=== PATIENT | female | born 1955 | race Caucasian/White ===

== ENCOUNTER 2016-05-16 13:50 | Outpatient (CLI) | payer MEDICARE | END 2016-05-16 13:51 | disposition home or self-care (01) | DX: R53.83 Other fatigue (principal); M13.80 Other specified arthritis, unspecified site ==

== ENCOUNTER 2016-07-23 13:19 | Outpatient (CLI) | payer MEDICARE | END 2016-07-23 13:20 | DX: R53.83 Other fatigue (principal) ==

== ENCOUNTER 2016-07-27 08:00 | Outpatient (CLI) | payer MEDICARE ==
[2016-08-01 14:51] LABS: CREATININE, URINE 1.36 g/24 h (0.63-2.50)
== END 2016-07-27 23:59 | disposition home or self-care (01) ==
LOC: LAB.WCP 08:00
PROVIDERS: ATTEND Physician Assistant Medical
DX: R53.83 Other fatigue (principal)
CPT/HCPCS: 82530; 82570

== ENCOUNTER 2016-09-08 13:13 | Outpatient (CLI) | payer MEDICARE ==
--- NOTE | 2016-09-10 11:26 | DEXA Report ---
DEXA BONE MINERAL DENSITY: 09/08/2016 CLINICAL HISTORY: Postmenopausal. TECHNIQUE: Dual energy x-ray absorptiometry (DXA) was performed on a [employer] system. Regions measured are the AP spine, femoral neck, and, if needed, forearm. COMPARISON: None. In accordance with the International Society for Clinical Densitometry (ISCD) guidelines, data from previous exams may be reanalyzed using current recommendations and techniques. This is done to allow a more accurate basis for comparison with the current study. FINDINGS: L1 through L4 demonstrate a T-score of -1.6. This is compatible with osteopenia according to the World Health Organization guidelines. Left femoral neck T-score is -0.5. This is within normal limits according to the World Health Organization guidelines. Total hip T-score is 0.2. This is within normal limits according to the World Health Organization guidelines. The data for the lumbar spine is as follows: REGION BMD (g/cm/cm) T-SCORE Z-SCORE L1 0.939 -1.6 -0.6 L2 0.955 -2.0 -1.1 L3 0.961 -2.0 -1.0 L4 1.087 -0.9 0.0 TOTAL 0.993 -1.6 -0.6 NOTE: All evaluable vertebrae are used for classification. The data for the hip is as follows: REGION BMD (g/cm/cm) T-SCORE Z-SCORE Neck 0.964 -0.5 0.6 TOTAL 1.038 0.2 1.0 NOTE: The femoral neck or total proximal femur, whichever is lowest, is used for classification. IMPRESSION: THE WHO CLASSIFICATION BASED ON THE INTERNATIONAL REFERENCE STANDARD IS OSTEOPENIA ACCORDING TO THE WORLD HEALTH ORGANIZATION GUIDELINES. THE PATIENT HAS INCREASED FRACTURE RISK. RECOMMENDATION: Patients with diagnosis of osteoporosis or osteopenia should have regular bone mineral density assessment. For those eligible for Medicare, routine testing is allowed once every 2 years. Testing frequency can be increased for patients who have rapidly progressing disease or for those who are receiving medical therapy to restore bone mass. COMMENT: World Health Organization (WHO) definitions for osteoporosis and osteopenia: NORMAL BMD: T-score at -1.0 or higher, fracture risk is low. OSTEOPENIA BMD: T-score between -1.0 and -2.5, fracture risk is increased. OSTEOPOROSIS BMD: T-score at -2.5 or lower, fracture risk high. National Osteoporosis Foundation recommends: 1. Obtain adequate dietary calcium (at least 1200 mg per day) and vitamin D (400 -800 international units per day). 2. Participate, as appropriate, in regular weightbearing and muscle- strengthening exercise. 3. Avoid tobacco use and reduce alcohol and caffeine intake. 4. For more detailed information see the website at www.NOF.org. MTDD
== END 2016-09-08 13:14 | disposition home or self-care (01) ==
LOC: DI 13:13
PROVIDERS: ATTEND Physician Assistant Medical
DX: M85.88 Other specified disorders of bone density and structure, other site (principal)
CPT/HCPCS: 77080

== ENCOUNTER 2016-09-10 13:10 | Outpatient (CLI) | payer OTHER ==
--- NOTE | 2016-09-10 16:11 | XRAY Report ---
CHEST PA AND LATERAL: 09/10/2016 CLINICAL HISTORY: Chest pain. COMPARISON: None. FINDINGS: The bony thorax is normal. The heart and great vessels are normal. The mediastinum is not widened. The pulmonary parenchyma appears normal. IMPRESSION: NORMAL EXAMINATION. JOB #: [id number] EXT JOB #:[id number]
== END 2016-09-10 13:11 | disposition home or self-care (01) ==
LOC: DI 13:10
PROVIDERS: ATTEND Physician Assistant Medical
DX: R07.9 Chest pain, unspecified (principal)
CPT/HCPCS: 71020

== ENCOUNTER 2016-09-17 08:15 | Outpatient (CLI) | payer OTHER ==
[2016-09-17 13:32] LABS: CHOL/HDL RATIO 4.9 (<4.4); CHOLESTEROL 246 mg/dL; HDL CHOLESTEROL 50 mg/dL; LDL/HDL RATIO 3.2 (<4.4); TRIGLYCERIDES 186 mg/dL; VLDL CHOLESTEROL 37 mg/dL
== END 2016-09-17 08:16 | disposition home or self-care (01) ==
LOC: LAB.WCP 08:15
PROVIDERS: ATTEND Physician Assistant Medical
DX: R07.9 Chest pain, unspecified (principal)
CPT/HCPCS: 36415; 80061; 84484; 85379

== ENCOUNTER 2017-04-09 10:33 | Outpatient (CLI) | payer MEDICARE ==
[2017-04-09 19:42] LABS: ALBUMIN 4.4 g/dL (3.2-5.5); ALBUMIN/GLOBULIN RATIO 1.8 (1.0-2.2); ALKALINE PHOSPHATASE 84 IU/L (42-121); ALT ALANINE AMINOTRANSFERASE 28 IU/L (10-60); AST ASPARTATE AMINOTRANSFERASE 28 IU/L (10-42); BILIRUBIN,TOTAL 0.4 mg/dL (0.2-1.0); BUN - BLOOD UREA NITROGEN 19 mg/dL (6-20); CARBON DIOXIDE - CO2 28 mmol/L (21-32); CHLORIDE 105 mmol/L (101-111); CHOLESTEROL 155 mg/dL; CREATININE 0.8 mg/dL (0.4-1.0); GFR - MDRD 73 (>89); GLUCOSE 108 mg/dL (70-100); HDL CHOLESTEROL 51 mg/dL; LDL CHOLESTEROL,CALCULATED 67 mg/dL; LDL/HDL RATIO 1.3 (<4.4); SODIUM 139 mmol/L (135-145); TOTAL PROTEIN 6.9 g/dL (6.7-8.2); VLDL CHOLESTEROL 37 mg/dL
== END 2017-04-09 10:34 | disposition home or self-care (01) ==
LOC: LAB.WCP 10:33
PROVIDERS: ATTEND Physician Assistant Medical
DX: Z51.81 Encounter for therapeutic drug level monitoring (principal); E78.00 Pure hypercholesterolemia, unspecified
CPT/HCPCS: 36415; 80053; 80061

== ENCOUNTER 2018-02-18 14:13 | Emergency (ER) | payer MEDICARE ==
[2018-02-18 15:33] LABS: ALBUMIN 4.7 g/dL (3.2-5.5); ALBUMIN/GLOBULIN RATIO 1.8 (1.0-2.2); BASOPHILS % (AUTO) 0.7 %; BILIRUBIN,TOTAL 0.4 mg/dL (0.2-1.0); CALCIUM 9.1 mg/dL (8.5-10.3); CREATININE 0.9 mg/dL (0.4-1.0); EOSINOPHILS # (AUTO) 0.1 10^3/uL (0.0-0.7); EOSINOPHILS % (AUTO) 1.5 %; HGB - HEMOGLOBIN 13.6 g/dL (12.0-16.0); LYMPHOCYTES # (AUTO) 0.8 10^3/uL (1.5-3.5); LYMPHOCYTES % (AUTO) 11.3 %; MEAN CORPUSCULAR HEMOGLOBIN 31.3 pg (27.0-31.0); MEAN CORPUSCULAR HGB CONC 34.4 g/dL (32.0-36.0); MEAN PLATELET VOLUME 9.1 fL (7.9-10.8); MONOCYTES # (AUTO) 0.4 10^3/uL (0.0-1.0); NEUTROPHILS % (AUTO) 81.5 %; PLT - PLATELET COUNT 233 10^3/uL (130-450); RED BLOOD COUNT 4.36 10^6/uL (4.20-5.40); RED CELL DISTRIBUTION WIDTH 13.5 % (12.0-15.0); TOTAL PROTEIN 7.3 g/dL (6.7-8.2); WHITE BLOOD COUNT 7.4 x10^3/uL (4.8-10.8)
--- NOTE | 2018-02-18 15:36 | ED Physician Documentation ---
PD HPI ABD PAIN - Stated complaint Stated Complaint: NAUSEA,STOMACH DISCOMFORT - Chief complaint Chief Complaint: Abd Pain - History obtained from History obtained from: Patient - History of Present Illness Timing - onset: Today (At 1pm developed severe diffuse cramps and followed by a single diarrheal BM. Had normal BM yesterday. Feels undercooked gomes she ate yesterday was causative. Pain is completely gone at at this juncture. No nausea.) Review of Systems Ten Systems: 10 systems reviewed and negative Constitutional: denies: Fever, Chills Cardiac: denies: Chest pain / pressure, Palpitations Respiratory: denies: Dyspnea, Cough GI: reports: Abdominal Pain, Diarrhea. denies: Nausea, Vomiting, Constipation PD PAST MEDICAL HISTORY - Past Medical History GI: GERD Psych: Depression, Anxiety, Panic attacks Musculoskeletal: Osteoarthritis, Fibromyalgia, Fatigue, Chronic back pain - Past Surgical History Past Surgical History: No Derm: Skin cancer surgery - Present Medications Home Medications: Ambulatory Orders Medication Instructions Recorded Confirmed Gabapentin [Neurontin] 300 mg PO HS 07/17/15 07/17/15 Acyclovir 400 mg PO 02/18/18 02/18/18 Cholecalciferol (Vitamin D3) 1,000 unit PO 02/18/18 [Vitamin D3] Cyanocobalamin (Vitamin B-12) 02/18/18 02/18/18 [Vitamin B-12] Duloxetine HCl 60 mg PO 02/18/18 Estradiol [Estrace] 1 mg PO DAILY 02/18/18 02/18/18 Pantoprazole [Protonix] 40 mg PO 02/18/18 02/18/18 Progesterone,Micronized 100 mg PO 02/18/18 [Progesterone] - Allergies Allergies/Adverse Reactions: Allergies Allergy/AdvReac Type Severity Reaction Status Date / Time No Known Drug Allergies Allergy Verified 02/18/18 14:25 - Social History Does the pt smoke?: No Smoking Status: Never smoker Does the pt drink ETOH?: No Does the pt have substance abuse?: No - Immunizations Immunizations are current?: Yes PD ED PE NORMAL - Vitals Vital signs reviewed: Yes - General General: Alert and oriented X 3, Other (anxious) - Cardiac Cardiac: RRR, No murmur - Respiratory Respiratory: No respiratory distress, Clear bilaterally - Abdomen Abdomen: Normal bowel sounds, Soft, Non tender - Neuro Neuro: Alert and oriented X 3, Normal speech - Psych Psych: Normal mood, Normal affect Results - Vitals Vitals: Vital Signs - 24 hr 02/18/18 14:23 Temperature 36.3 C L Heart Rate 88 Respiratory 20 Rate Blood Pressure 147/91 H O2 Saturation 100 Oxygen O2 Source Room air - Labs Labs: Laboratory Tests 02/18/18 02/18/18 02/18/18 15:14 15:14 15:14 WBC 7.4 RBC 4.36 Hgb 13.6 Hct 39.7 MCV 91.0 MCH 31.3 H MCHC 34.4 RDW 13.5 Plt Count 233 MPV 9.1 Neut # (Auto) 6.0 Lymph # (Auto) 0.8 L Fannin # (Auto) 0.4 Eos # (Auto) 0.1 Baso # (Auto) 0.0 Absolute Nucleated RBC 0.01 Nucleated RBC % 0.1 Sodium 135 Potassium 4.5 Chloride 103 Carbon Dioxide 26 Anion Gap 6.0 BUN 20 Creatinine 0.9 Estimated GFR (MDRD) 63 L Glucose 150 H Lactic Acid 2.3 H Calcium 9.1 Total Bilirubin 0.4 AST 46 H ALT 31 Alkaline Phosphatase 75 Total Protein 7.3 Albumin 4.7 Globulin 2.6 Albumin/Globulin Ratio 1.8 Lipase 28 PD MEDICAL DECISION MAKING - ED course ED course: 62-year-old woman with resolved abdominal pain and a single diarrheal bowel movements. She was asymptomatic in the emergency department and lab work is basically unremarkable. Reexamination prior to discharge at 4:10 PM remained completely nontender and she was pain-free. Departure - Departure Disposition: 01 Home, Self Care Clinical Impression: Abdominal pain Qualifiers: Abdominal location: generalized Qualified Code(s): R10.84 - Generalized abdominal pain Condition: Good Record reviewed to determine appropriate education?: Yes Instructions: ED Abdominal Pain Unkn Cause Comments: Return if you have any recurrent symptoms or new symptoms. Your blood pressure was elevated today on check into the emergency department. This does not mean that you have hypertension, it is a common phenomenon to come to the emergency department and have elevated blood pressure. I recommend that you see your primary care physician within the week to have it rechecked when you are feeling better.
[2018-02-18 16:19] VITALS: BP 145/64
[2018-02-18 16:21] LABS: BILIRUBIN,URINE NEGATIVE (NEGATIVE); GLUCOSE, URINE (UA) NEGATIVE (NEGATIVE); KETONES,URINE (UA) NEGATIVE (NEGATIVE); LEUKOCYTE ESTERASE, URINE NEGATIVE (NEGATIVE); NITRITE,URINE NEGATIVE (NEGATIVE); OCCULT BLOOD,URINE NEGATIVE (NEGATIVE); PH,URINE 5.5 PH (5.0-7.5); PROTEIN,URINE NEGATIVE (NEGATIVE); UROBILINOGEN,URINE 0.2 (NORMAL) E.U./dL (NORMAL)
[2018-02-18 16:22] LABS: CLARITY,URINE CLEAR (CLEAR)
== END 2018-02-18 16:19 | disposition home or self-care (01) ==
LOC: ED 14:13
DX: R10.84 Generalized abdominal pain (principal); R03.0 Elevated blood-pressure reading, without diagnosis of hypertension
CPT/HCPCS: 36415; 80053; 81001; 81003; 83605; 83690; 85025; 87086; 99283

== ENCOUNTER 2018-07-05 16:02 | Outpatient (CLI) | payer MEDICARE ==
--- NOTE | 2018-07-06 09:12 | XRAY Report ---
Reason: LEFT FOOT PAIN Procedure Date: 07/05/2018 Accession Number: [id number] / [id number] Procedure: XR - Foot 3 View LT CPT Code: FULL RESULT: EXAM: LEFT FOOT RADIOGRAPHY EXAM DATE: 07/05/2018 04:20 PM. CLINICAL HISTORY: LEFT FOOT PAIN. COMPARISON: None. TECHNIQUE: 3 views. FINDINGS: Bones: No acute abnormality. Minimal hallux valgus. Joints: Normal. No subluxations. Soft Tissues: Normal. No soft tissue swelling. IMPRESSION: No acute abnormality. RADIA
== END 2018-07-05 16:03 | disposition home or self-care (01) ==
LOC: DI 16:02
PROVIDERS: ATTEND Internal Medicine
DX: M79.672 Pain in left foot (principal)

== ENCOUNTER 2018-09-07 09:33 | Outpatient (CLI) | payer MEDICARE ==
[2018-09-07 10:21] LABS: BUN - BLOOD UREA NITROGEN 14 mg/dL (6-20); CALCIUM 8.9 mg/dL (8.5-10.3); CARBON DIOXIDE - CO2 23 mmol/L (21-32); CHLORIDE 105 mmol/L (101-111); CHOL/HDL RATIO 3.2 (<4.4); CHOLESTEROL 168 mg/dL; CREATININE 0.8 mg/dL (0.4-1.0); GFR - MDRD 72 (>89); GLUCOSE 111 mg/dL (70-100); HDL CHOLESTEROL 52 mg/dL; LDL CHOLESTEROL,CALCULATED 80 mg/dL; LDL/HDL RATIO 1.5 (<4.4); SODIUM 139 mmol/L (135-145); VLDL CHOLESTEROL 36 mg/dL
== END 2018-09-07 09:34 | disposition home or self-care (01) ==
LOC: LAB 09:33
PROVIDERS: ATTEND Internal Medicine
DX: R73.01 Impaired fasting glucose (principal); I10 Essential (primary) hypertension; E78.5 Hyperlipidemia, unspecified
CPT/HCPCS: 36415; 80048; 80061; 83721

== ENCOUNTER 2018-09-30 16:33 | Emergency (ER) | payer MEDICARE ==
--- NOTE | 2018-09-30 18:51 | XRAY Report ---
Reason: poss FB? laceration with glass Procedure Date: 09/30/2018 Accession Number: [id number] / [id number] Procedure: XR - Foot 3 View LT CPT Code: FULL RESULT: EXAM: LEFT FOOT RADIOGRAPHY EXAM DATE: 09/30/2018 06:31 PM. CLINICAL HISTORY: Poss FB? laceration with glass. COMPARISON: FOOT 3 VIEW LT 07/05/2018 4:14 PM. TECHNIQUE: 3 views. FINDINGS: Bones: Normal. No fractures or bone lesions. Joints: Normal. No subluxations. Soft Tissues: Normal. No soft tissue swelling. IMPRESSION: No radiopaque foreign body in the soft tissues. No acute displaced fracture or malalignment. RADIA
[2018-09-30] MEDS ORDERED: BACITRACIN OINT TOP STA (18:58)
--- NOTE | 2018-09-30 19:00 | ED Physician Documentation ---
PD HPI LOWER EXT INJURY - Stated complaint Stated Complaint: LT FOOT W/GLASS IN BOTTOM - Chief complaint Chief Complaint: Ext Problem - History obtained from History obtained from: Patient - History of Present Illness PD HPI LOW EXT INJURY LOCATION: Left, Foot Type of injury: Other (stepped on glass.) Where injury occurred: Home Timing - onset: Today Timing - duration: Hours (3) Timing - details: Abrupt onset Pain level max: 3 Pain level now: 2 Improved by: Rest Worsened by: Moving, Palpating Associated symptoms: No: Weakness, Numbness, Tingling, Swelling Contributing factors: No: Anticoagulated Review of Systems Skin: denies: Rash Neurologic: denies: Focal weakness, Numbness PD PAST MEDICAL HISTORY - Past Medical History Past Medical History: Yes Neuro: None Endocrine/Autoimmune: HyPOthyroidism GI: GERD HEENT: None Psych: Depression, Anxiety, Panic attacks Musculoskeletal: Osteoarthritis, Fibromyalgia, Fatigue, Chronic back pain - Past Surgical History Past Surgical History: No Derm: Skin cancer surgery - Present Medications Home Medications: Ambulatory Orders Medication Instructions Recorded Confirmed Gabapentin [Neurontin] 300 mg PO HS 07/17/15 07/17/15 Acyclovir 400 mg PO 02/18/18 02/18/18 Cholecalciferol (Vitamin D3) 1,000 unit PO 02/18/18 [Vitamin D3] Cyanocobalamin (Vitamin B-12) 02/18/18 02/18/18 [Vitamin B-12] Duloxetine HCl 60 mg PO 02/18/18 Estradiol [Estrace] 1 mg PO DAILY 02/18/18 02/18/18 Pantoprazole [Protonix] 40 mg PO 02/18/18 02/18/18 Progesterone, Micronized 100 mg PO 02/18/18 [Progesterone] - Allergies Allergies/Adverse Reactions: Allergies Allergy/AdvReac Type Severity Reaction Status Date / Time No Known Drug Allergies Allergy Verified 09/30/18 16:46 - Social History Does the pt smoke?: No Smoking Status: Never smoker Does the pt drink ETOH?: No Does the pt have substance abuse?: No - Immunizations Immunizations are current?: Yes - POLST Patient has POLST: No PD ED PE NORMAL - Vitals Vital signs reviewed: Yes - General General: Alert and oriented X 3, No acute distress, Well developed/nourished - HEENT HEENT: Moist mucous membranes - Derm Derm: Warm and dry - Extremities Extremities: Other (Small puncture to the plantar aspect of the foot. 0.1 cm. Not bleeding. Neurovascular intact) - Neuro Neuro: Alert and oriented X 3 - Psych Psych: Normal mood, Normal affect Results - Vitals Vitals: Vital Signs - 24 hr 09/30/18 09/30/18 16:44 19:30 Temperature 36.4 C L 36.6 C Heart Rate 92 80 Respiratory 19 18 Rate Blood Pressure 140/68 H 130/77 O2 Saturation 99 99 Oxygen O2 Source Room air - Rads (name of study) Left foot x-ray Radiology: Prelim report reviewed, EMP read contemporaneously, See rad report (Normal x-ray. No radiopaque foreign body) PD MEDICAL DECISION MAKING - ED course Complexity details: considered differential, d/w patient ED course: Patient with a small plantar puncture wound. No retained foreign body. Wound was cleansed and bandaged. Tetanus up-to-date. Warnings of infection and instructions on wound care given at bedside. Patient counseled regarding signs and symptoms for which I believe and urgent re-evaluation would be necessary. Patient with good understanding of and agreement to plan and is comfortable going home at this time This document was made in part using voice recognition software. While efforts are made to proofread this document, sound alike and grammatical errors may occur. Departure - Departure Disposition: 01 Home, Self Care Clinical Impression: Foot laceration Qualifiers: Encounter type: initial encounter Laterality: left Qualified Code(s): S91.312A - Laceration without foreign body, left foot, initial encounter Condition: Good Instructions: ED Laceration Foot Follow-Up: Lauryn Spicer MD [Primary Care Provider] - As Needed Comments: Return if you worsen. This should heal without any issue. Return especially for redness, swelling or drainage from the wound. Discharge Date/Time: 09/30/18 19:33
[2018-09-30 19:30] VITALS: BP 130/77
== END 2018-09-30 19:33 | disposition home or self-care (01) ==
LOC: ED 16:33
DX: S91.332A Puncture wound without foreign body, left foot, initial encounter (principal); W22.8XXA Striking against or struck by other objects, initial encounter; Y92.000 Kitchen of unspecified non-institutional (private) residence as the place of occurrence of the external cause
CPT/HCPCS: 73630; 99282; 99283; A9270

== ENCOUNTER 2019-06-01 11:11 | Outpatient (CLI) | payer MEDICARE ==
--- NOTE | 2019-06-02 10:15 | Mammography Report ---
Reason: ROUTINE MAMMO Procedure Date: 06/01/2019 Accession Number: [id number] / [id number] Procedure: YULISSA - Screening Mammo w/Rex CPT Code: Final Report FULL RESULT: EXAM: Screening Mammo w/Rex DATE: 06/01/2019 11:55 AM CLINICAL HISTORY: Screening encounter. History of nulliparity. TECHNIQUE: (B) - Bilateral CC and MLO views were obtained. COMPARISON: 02/03/2013. PARENCHYMAL PATTERN: (D) - The breast(s) demonstrate(s) heterogeneously dense fibroglandular parenchyma. FINDINGS: There are no suspicious masses, calcifications, or areas of distortion. IMPRESSION: Negative examination. BI-RADS category 1. RECOMMENDATION: (ANNUAL) - Recommend routine annual screening mammography. BI-RADS CATEGORY: (1) - Negative. STANDARD QUALIFYING STATEMENTS: 1. This examination was not reviewed with the aid of Computer-Aided Detection (CAD). 2. A negative or benign imaging report should not preclude biopsy if clinically suspicious findings are present. 3. Dense breasts may obscure an underlying neoplasm. 4. This examination was reviewed with the aid of 3D breast imaging (tomosynthesis).
== END 2019-06-01 11:12 | disposition home or self-care (01) ==
LOC: DI 11:11
DX: Z12.31 Encounter for screening mammogram for malignant neoplasm of breast (principal)
CPT/HCPCS: 77063; 77067

== ENCOUNTER 2019-08-03 10:24 | Outpatient (CLI) | payer MEDICARE ==
[2019-08-03 10:57] LABS: ALT ALANINE AMINOTRANSFERASE 24 IU/L (10-60); AST ASPARTATE AMINOTRANSFERASE 28 IU/L (10-42); BUN - BLOOD UREA NITROGEN 20 mg/dL (6-20); CALCIUM 8.7 mg/dL (8.5-10.3); CARBON DIOXIDE - CO2 28 mmol/L (21-32); CHLORIDE 104 mmol/L (101-111); CHOL/HDL RATIO 3.2 (<4.4); CHOLESTEROL 179 mg/dL; CREATININE 0.8 mg/dL (0.4-1.0); GLUCOSE 117 mg/dL (70-100); HDL CHOLESTEROL 56 mg/dL; LDL CHOLESTEROL,CALCULATED 88 mg/dL; LDL/HDL RATIO 1.6 (<4.4); SODIUM 137 mmol/L (135-145); VLDL CHOLESTEROL 35 mg/dL
== END 2019-08-03 10:25 | disposition home or self-care (01) ==
LOC: LAB 10:24
PROVIDERS: ATTEND Internal Medicine
DX: E78.5 Hyperlipidemia, unspecified (principal); R73.01 Impaired fasting glucose; E03.9 Hypothyroidism, unspecified
CPT/HCPCS: 36415; 80048; 80061; 83721; 84443; 84450; 84460

== ENCOUNTER 2019-10-09 08:00 | Outpatient (CLI) | payer MEDICARE | END 2019-10-09 23:59 | disposition home or self-care (01) | LOC: LAB.R 08:00 | PROVIDERS: ATTEND Internal Medicine | DX: R19.7 Diarrhea, unspecified (principal) | CPT/HCPCS: 87493 ==

== ENCOUNTER 2019-10-13 11:21 | Emergency (ER) | payer MEDICARE ==
--- NOTE | 2019-10-13 12:55 | ED Physician Documentation ---
PD HPI UPPER EXT INJURY - Stated complaint Stated Complaint: R THUMB INJ - Chief complaint Chief Complaint: Ext Problem - History obtained from History obtained from: Patient - History of Present Illness Location: Right, Wrist, Hand Type of injury: Blunt / blow Where injury occurred: Home Timing - onset: How many hours ago (16) - Additonal information Additional information: 64-year-old female presents to the emergency department with chief complaint of right hand pain. Reports that last night she was going to throw some carrots into the yard for the rabbits and she accidentally hit her sliding glass door with a full force of her thumb. 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 Since then she has had progressive swelling and some mild bruising of the thumb. She also reports some numbness and tingling at the distal tip of the thumb. She does have brisk cap refill peer Review of Systems Constitutional: denies: Fever Eyes: denies: Loss of vision Throat: denies: Dental pain / toothache Cardiac: denies: Chest pain / pressure, Palpitations Respiratory: denies: Dyspnea, Cough Musculoskeletal: reports: Extremity pain, Joint pain, Joint swelling PD PAST MEDICAL HISTORY - Past Medical History Neuro: None Endocrine/Autoimmune: HyPOthyroidism GI: GERD HEENT: None Psych: Depression, Anxiety, Panic attacks Musculoskeletal: Osteoarthritis, Fibromyalgia, Fatigue, Chronic back pain - Past Surgical History Past Surgical History: No Derm: Skin cancer surgery - Present Medications Home Medications: Ambulatory Orders Medication Instructions Recorded Confirmed Gabapentin [Neurontin] 300 mg PO HS 07/17/15 07/17/15 Acyclovir 400 mg PO 02/18/18 02/18/18 Cholecalciferol (Vitamin D3) 1,000 unit PO 02/18/18 [Vitamin D3] Cyanocobalamin (Vitamin B-12) 02/18/18 02/18/18 [Vitamin B-12] Duloxetine HCl 60 mg PO 02/18/18 Pantoprazole [Protonix] 40 mg PO 02/18/18 02/18/18 Progesterone, Micronized 100 mg PO 02/18/18 [Progesterone] estradioL [Estrace] 1 mg PO DAILY 02/18/18 02/18/18 - Allergies Allergies/Adverse Reactions: Allergies Allergy/AdvReac Type Severity Reaction Status Date / Time No Known Drug Allergies Allergy Verified 10/13/19 11:26 - Social History Does the pt smoke?: No Smoking Status: Never smoker Does the pt drink ETOH?: No Does the pt have substance abuse?: No - Immunizations Immunizations are current?: Yes - POLST Patient has POLST: No PD ED PE EXPANDED - Extremities Extremities: Right hand (Swelling of the right thumb. Brisk cap refill. Able to flex and extend the thumb at both joints against resistance. Positive snuffb ox tenderness. Normal flexion and extension of the wrist.) Results - Vitals Vitals: Vital Signs - 24 hr 10/13/19 11:23 Temperature 37 C Heart Rate 89 Respiratory 16 Rate Blood Pressure 159/61 H O2 Saturation 98 Oxygen O2 Source Room air - Rads (name of study) right thumb Radiology: Final report received (Intra-articular first proximal phalanx fracture as above.) PD MEDICAL DECISION MAKING - ED course Complexity details: reviewed results, d/w patient ED course: 64-year-old female presents the emergency department with right thumb pain after forcefully hitting it against a sliding glass door yesterday evening. She has fairly moderate thumb bruising. However she is noted to also have snuffbox tenderness. The exam is complicated by a history of CMC arthritis that she has been pending surgery to address but has been unable to secondary to the pandemic. - X-ray reveals a proximal first phalanx fracture. However secondary to anxiety, pain, previous arthritis patient would not tolerate a formal fiberglass splint being placed. Therefore we compromised by placing a Velcro abducted thumb splint. She understands that this is not ideal based on the location of her fracture. However it will be helpful as she does have some associated snuffbox tenderness. - Patient will be referred to orthopedics for follow-up. Emergent return precautions to the emergency department discussed. Departure - Departure Disposition: 01 Home, Self Care Clinical Impression: Fracture of proximal phalanx of digit of hand Condition: Stable Record reviewed to determine appropriate education?: Yes Instructions: ED Fx Finger Closed Ch Follow-Up: [facility] [Provider Group] Comments: Alma I do hope your finger feels better soon. The x-ray shows a fracture of the first phalanx. This is not the ideal splint that we have you when but minimizing movement of the thumb will be helpful. This fracture is likely to heal without needing any surgical intervention. However you do have what is called snuffbox tenderness and wearing the splint will help make sure that if there is a fracture of the scaphoid bone the thumb remains immobile. Please call our orthopedics department for follow-up to be seen within the next week. If you have fevers worsening pain redness then return to the emergency department for further evaluation your regular pain medicine can be taken and I would also recommend lightly icing the thumb to help with swelling
--- NOTE | 2019-10-13 12:59 | XRAY Report ---
PROCEDURE: Hand 3 View RT INDICATIONS: r/o thumb fracture TECHNIQUE: 3 views of the hand(s) acquired. COMPARISON: None FINDINGS: Bones: There is a minimally displaced fracture at the distal aspect of the first proximal phalanx, ex tending to the articular surface. No suspicious bony lesions. Soft tissues: No suspicious soft tissue calcifications. IMPRESSION: Intra-articular, first proximal phalanx fracture as above. Reviewed by: Geni Snyder MD on 10/13/2019 12:57 PM PDT Approved by: Geni Snyder MD on 10/13/2019 12:57 PM PDT Station ID: [id number]
[2019-10-13 13:53] VITALS: BP 123/68
== END 2019-10-13 13:56 | disposition home or self-care (01) ==
LOC: ED 11:21
DX: S62.511A Displaced fracture of proximal phalanx of right thumb, initial encounter for closed fracture (principal); W22.09XA Striking against other stationary object, initial encounter; Y93.K9 Activity, other involving animal care; Y92.009 Unspecified place in unspecified non-institutional (private) residence as the place of occurrence of the external cause; M18.11 Unilateral primary osteoarthritis of first carpometacarpal joint, right hand
CPT/HCPCS: 99283

== ENCOUNTER 2020-04-27 13:01 | Outpatient (CLI) | payer MEDICARE, MEDICAID ==
--- NOTE | 2020-05-01 03:23 | DEXA Report ---
PROCEDURE: Dexa Spine and/or Hip INDICATIONS: SCREENING FOR OSTEOPOROSIS TECHNIQUE: Dual energy x-ray absorptiometry (DXA) was performed on a [employer] System. Regions measur ed are the AP Spine, femoral neck, and if needed forearm. COMPARISON: None. FINDINGS: Lumbar Spine: Bone Mineral Density 1.035 g/cm/cm,T score -1.2, Left Hip: Bone Mineral Density 1.043 g/cm/cm,T score 0.3, Left Femoral Neck: Bone Mineral Density 0.997 g/cm/cm, T score -0.3, (T score greater or equal to -1.0: NORMAL) (T score from -1.1 to -2.4: OSTEOPENIA) (T score less than or equal to -2.5 to: OSTEOPOROSIS) Impression: Osteopenia. Patients with diagnosis of osteoporosis or osteopenia should have regular bone mineral density assess ment. For those eligible for Medicare, routine testing is allowed once every 2 years. Testing frequ ency can be increased for patients who have rapidly progressing disease or for those who are receivin g medical therapy to restore bone mass. Reviewed by: Patrick Romero MD on 04/30/2020 3:17 PM PST Approved by: Patrick Romero MD on 04/30/2020 3:17 PM PST Station ID: [id number]
== END 2020-04-27 13:02 | disposition home or self-care (01) ==
LOC: DI 13:01
PROVIDERS: ATTEND Internal Medicine
DX: Z13.820 Encounter for screening for osteoporosis (principal); M85.89 Other specified disorders of bone density and structure, multiple sites

== ENCOUNTER 2020-04-27 13:01 | Outpatient (CLI) | payer MEDICARE, MEDICAID ==
--- NOTE | 2020-04-27 15:25 | XRAY Report ---
PROCEDURE: SI Joints INDICATIONS: JOINT PAIN TECHNIQUE: 3 views of the sacroiliac joints were acquired. COMPARISON: None. FINDINGS: Bones: No bony erosions or ankylosis. No suspicious bony lesions. No fractures. Bilateral periarti cular sacroiliac sclerosis. No definite erosion or ankylosis seen. The joint spaces appear grossly pr eserved. There is spurring . Lumbar spondylosis and facet arthropathy. Soft tissues: Overlying bowel gas pattern is normal. No suspicious soft tissue densities. IMPRESSION: Bilateral sacroiliac sclerosis and spurring. No ankylosis or definite erosions identified. Reviewed by: Shola Christiansen MD on 04/27/2020 3:23 PM PST Approved by: Shola Christiansen MD on 04/27/2020 3:23 PM PST Station ID: [id number]
== END 2020-04-27 13:02 | disposition home or self-care (01) ==
LOC: DI 13:01
PROVIDERS: ATTEND Internal Medicine Rheumatology
DX: Z13.820 Encounter for screening for osteoporosis (principal); M85.89 Other specified disorders of bone density and structure, multiple sites; M47.816 Spondylosis without myelopathy or radiculopathy, lumbar region

== ENCOUNTER 2020-06-07 09:25 | Outpatient (CLI) | payer MEDICARE, MEDICAID ==
[2020-06-07 09:53] LABS: BASOPHILS # (AUTO) 0.1 10^3/uL (0.0-0.1); BASOPHILS % (AUTO) 1.1 %; EOSINOPHILS # (AUTO) 0.1 10^3/uL (0.0-0.7); EOSINOPHILS % (AUTO) 2.3 %; HCT - HEMATOCRIT 36.8 % (37.0-47.0); HGB - HEMOGLOBIN 12.2 g/dL (12.0-16.0); LYMPHOCYTES # (AUTO) 1.4 10^3/uL (1.5-3.5); LYMPHOCYTES % (AUTO) 32.6 %; MEAN CORPUSCULAR HEMOGLOBIN 29.3 pg (27.0-31.0); MEAN CORPUSCULAR HGB CONC 33.2 g/dL (32.0-36.0); MEAN CORPUSCULAR VOLUME 88.5 fL (81.0-99.0); MEAN PLATELET VOLUME 10.3 fL (7.9-10.8); MONOCYTES # (AUTO) 0.3 10^3/uL (0.0-1.0); MONOCYTES % (AUTO) 7.8 %; NEUTROPHILS # (AUTO) 2.4 10^3/uL (1.5-6.6); PLT - PLATELET COUNT 231 10^3/uL (130-450); RED BLOOD COUNT 4.16 10^6/uL (4.20-5.40); RED CELL DISTRIBUTION WIDTH 13.2 % (12.0-15.0); WHITE BLOOD COUNT 4.4 x10^3/uL (4.8-10.8)
[2020-06-07 10:28] LABS: % IRON SATURATION 24 % (20-50); ALBUMIN 4.1 g/dL (3.2-5.5); ALBUMIN/GLOBULIN RATIO 1.5 (1.0-2.2); ALKALINE PHOSPHATASE 67 IU/L (42-121); ALT ALANINE AMINOTRANSFERASE 22 IU/L (10-60); AST ASPARTATE AMINOTRANSFERASE 25 IU/L (10-42); BILIRUBIN,TOTAL 0.6 mg/dL (0.2-1.0); BUN - BLOOD UREA NITROGEN 18 mg/dL (6-20); CARBON DIOXIDE - CO2 25 mmol/L (21-32); CHLORIDE 101 mmol/L (101-111); CREATININE 0.8 mg/dL (0.4-1.0); GFR - MDRD 72 (>89); GLUCOSE 116 mg/dL (70-100); IRON 100 ug/dL (28-170); POTASSIUM 4.6 mmol/L (3.5-5.0); SODIUM 136 mmol/L (135-145); TOTAL IRON BINDING CAPACITY 412 ug/dL (250-450); TOTAL PROTEIN 6.9 g/dL (6.7-8.2); TRANSFERRIN 294 mg/dL (192-382); URIC ACID 5.4 mg/dL (2.6-7.2)
[2020-06-07 10:32] LABS: CRP - C-REACTIVE PROTEIN < 1.0 mg/dL (0-1.0)
[2020-06-08 12:21] LABS: HEPATITIS B SURFACE ANTIGEN NON-REACTIVE (NON-REACTIVE); HEPATITIS C ANTIBODY NON-REACTIVE (NON-REACTIVE)
[2020-06-08 12:22] LABS: HEPATITIS B CORE AB TOTAL NON-REACTIVE (NON-REACTIVE)
[2020-06-09 13:11] LABS: COMPLEMENT COMPONENT C3C 135 mg/dL (83-193); COMPLEMENT COMPONENT C4C 24 mg/dL (15-57)
[2020-06-09 14:11] LABS: ANA SCREEN NEGATIVE (NEGATIVE)
== END 2020-06-07 09:26 | disposition home or self-care (01) ==
LOC: LAB 09:25
PROVIDERS: ATTEND Internal Medicine Rheumatology
DX: M25.50 Pain in unspecified joint (principal); K14.0 Glossitis
CPT/HCPCS: 36415; 80053; 81599; 82728; 83540; 84466; 84550; 85025; 85651; 86038; 86140; 86160; 86317; 86704; 86705; 86707; 86803; 87340

== ENCOUNTER 2020-07-13 15:36 | Outpatient (CLI) | payer MEDICARE, MEDICAID ==
[2020-07-13 16:25] LABS: ALBUMIN 4.4 g/dL (3.2-5.5); ALBUMIN/GLOBULIN RATIO 1.8 (1.0-2.2); ALKALINE PHOSPHATASE 80 IU/L (42-121); ALT ALANINE AMINOTRANSFERASE 28 IU/L (10-60); AST ASPARTATE AMINOTRANSFERASE 27 IU/L (10-42); BILIRUBIN,TOTAL 0.4 mg/dL (0.2-1.0); BUN - BLOOD UREA NITROGEN 15 mg/dL (6-20); CALCIUM 9.4 mg/dL (8.5-10.3); CARBON DIOXIDE - CO2 25 mmol/L (21-32); CHLORIDE 104 mmol/L (101-111); CHOL/HDL RATIO 3.4 (<4.4); CHOLESTEROL 186 mg/dL; CREATININE 0.6 mg/dL (0.4-1.0); GFR - MDRD 100 (>89); GLUCOSE 125 mg/dL (70-100); HDL CHOLESTEROL 55 mg/dL; LDL CHOLESTEROL,CALCULATED 72 mg/dL; LDL/HDL RATIO 1.3 (<4.4); POTASSIUM 4.1 mmol/L (3.5-5.0); SODIUM 138 mmol/L (135-145); TOTAL PROTEIN 6.9 g/dL (6.7-8.2); TRIGLYCERIDES 295 mg/dL; VLDL CHOLESTEROL 59 mg/dL
[2020-07-13 16:36] LABS: THYROID STIMULATING HORMONE 2.58 uIU/mL (0.34-5.60)
== END 2020-07-13 15:37 | disposition home or self-care (01) ==
LOC: LAB 15:36
PROVIDERS: ATTEND Internal Medicine
DX: E78.5 Hyperlipidemia, unspecified (principal); E03.9 Hypothyroidism, unspecified; H04.123 Dry eye syndrome of bilateral lacrimal glands; M25.50 Pain in unspecified joint
CPT/HCPCS: 36415; 80053; 80061; 81599; 83721; 84443; 86235; 86705

== ENCOUNTER 2020-11-13 09:12 | Outpatient (CLI) | payer MEDICARE ==
[2020-11-13 09:31] LABS: BASOPHILS # (AUTO) 0.1 10^3/uL (0.0-0.1); BASOPHILS % (AUTO) 0.9 %; EOSINOPHILS # (AUTO) 0.2 10^3/uL (0.0-0.7); EOSINOPHILS % (AUTO) 3.3 %; HGB - HEMOGLOBIN 13.4 g/dL (12.0-16.0); LYMPHOCYTES # (AUTO) 1.4 10^3/uL (1.5-3.5); LYMPHOCYTES % (AUTO) 26.2 %; MEAN CORPUSCULAR HEMOGLOBIN 32.4 pg (27.0-31.0); MEAN CORPUSCULAR HGB CONC 34.4 g/dL (32.0-36.0); MEAN CORPUSCULAR VOLUME 94.2 fL (81.0-99.0); MEAN PLATELET VOLUME 10.4 fL (7.9-10.8); MONOCYTES # (AUTO) 0.3 10^3/uL (0.0-1.0); MONOCYTES % (AUTO) 5.8 %; NEUTROPHILS # (AUTO) 3.4 10^3/uL (1.5-6.6); NEUTROPHILS % (AUTO) 63.6 %; PLT - PLATELET COUNT 202 10^3/uL (130-450); RED BLOOD COUNT 4.14 10^6/uL (4.20-5.40); RED CELL DISTRIBUTION WIDTH 12.4 % (12.0-15.0); WHITE BLOOD COUNT 5.4 x10^3/uL (4.8-10.8)
[2020-11-13 09:52] LABS: ALBUMIN 4.2 g/dL (3.2-5.5); ALBUMIN/GLOBULIN RATIO 1.7 (1.0-2.2); BILIRUBIN,TOTAL 0.7 mg/dL (0.2-1.0); CALCIUM 9.3 mg/dL (8.5-10.3); CREATININE 0.7 mg/dL (0.4-1.0); POTASSIUM 4.5 mmol/L (3.5-5.0); TOTAL PROTEIN 6.7 g/dL (6.7-8.2)
[2020-11-13 13:54] LABS: ESTIMATED AVERAGE GLUCOSE 108 mg/dL (70-100); HEMOGLOBIN A1c% 5.4 % (4.27-6.07)
== END 2020-11-13 09:13 | disposition home or self-care (01) ==
LOC: LAB 09:12
PROVIDERS: ATTEND Internal Medicine
DX: R73.01 Impaired fasting glucose (principal); E61.1 Iron deficiency
CPT/HCPCS: 36415; 80053; 82728; 83036; 83540; 84466; 85025

== ENCOUNTER 2021-01-18 09:45 | Outpatient (CLI) | payer MEDICARE ==
[2021-01-18 10:17] LABS: BASOPHILS # (AUTO) 0.1 10^3/uL (0.0-0.1); BASOPHILS % (AUTO) 1.1 %; EOSINOPHILS # (AUTO) 0.2 10^3/uL (0.0-0.7); EOSINOPHILS % (AUTO) 3.5 %; HCT - HEMATOCRIT 38.1 % (37.0-47.0); HGB - HEMOGLOBIN 13.2 g/dL (12.0-16.0); LYMPHOCYTES # (AUTO) 1.5 10^3/uL (1.5-3.5); LYMPHOCYTES % (AUTO) 31.9 %; MEAN CORPUSCULAR HEMOGLOBIN 32.4 pg (27.0-31.0); MEAN CORPUSCULAR HGB CONC 34.6 g/dL (32.0-36.0); MEAN CORPUSCULAR VOLUME 93.6 fL (81.0-99.0); MEAN PLATELET VOLUME 10.5 fL (7.9-10.8); MONOCYTES # (AUTO) 0.4 10^3/uL (0.0-1.0); MONOCYTES % (AUTO) 8.1 %; NEUTROPHILS # (AUTO) 2.5 10^3/uL (1.5-6.6); NEUTROPHILS % (AUTO) 55.2 %; PLT - PLATELET COUNT 193 10^3/uL (130-450); RED BLOOD COUNT 4.07 10^6/uL (4.20-5.40); RED CELL DISTRIBUTION WIDTH 12.3 % (12.0-15.0); WHITE BLOOD COUNT 4.6 x10^3/uL (4.8-10.8)
[2021-01-18 11:02] LABS: ALBUMIN 4.4 g/dL (3.2-5.5); BILIRUBIN,TOTAL 0.8 mg/dL (0.2-1.0); CALCIUM 9.4 mg/dL (8.5-10.3); CREATININE 0.7 mg/dL (0.4-1.0); POTASSIUM 4.6 mmol/L (3.5-5.0); TOTAL PROTEIN 6.6 g/dL (6.7-8.2)
[2021-01-18 12:44] LABS: ESTIMATED AVERAGE GLUCOSE 111 mg/dL (70-100); HEMOGLOBIN A1c% 5.5 % (4.27-6.07)
[2021-01-19 12:11] LABS: HIV AG/AB 4TH GEN NON-REACTIVE (NON-REACTIVE)
== END 2021-01-18 09:46 | disposition home or self-care (01) ==
LOC: LAB 09:45
PROVIDERS: ATTEND Internal Medicine
DX: R73.01 Impaired fasting glucose (principal); Z11.4 Encounter for screening for human immunodeficiency virus [HIV]; D64.9 Anemia, unspecified
CPT/HCPCS: 36415; 80053; 82607; 83036; 85025; G0475; 87389

== ENCOUNTER 2021-03-13 10:05 | Outpatient (CLI) | payer MEDICARE ==
[2021-03-13 10:46] LABS: BASOPHILS # (AUTO) 0.1 10^3/uL (0.0-0.1); BASOPHILS % (AUTO) 1.2 %; EOSINOPHILS # (AUTO) 0.2 10^3/uL (0.0-0.7); EOSINOPHILS % (AUTO) 4.2 %; HCT - HEMATOCRIT 37.8 % (37.0-47.0); HGB - HEMOGLOBIN 13.2 g/dL (12.0-16.0); LYMPHOCYTES # (AUTO) 1.3 10^3/uL (1.5-3.5); LYMPHOCYTES % (AUTO) 30.6 %; MEAN CORPUSCULAR HEMOGLOBIN 32.6 pg (27.0-31.0); MEAN CORPUSCULAR HGB CONC 34.9 g/dL (32.0-36.0); MEAN CORPUSCULAR VOLUME 93.3 fL (81.0-99.0); MEAN PLATELET VOLUME 10.2 fL (7.9-10.8); MONOCYTES # (AUTO) 0.4 10^3/uL (0.0-1.0); MONOCYTES % (AUTO) 10.2 %; NEUTROPHILS # (AUTO) 2.3 10^3/uL (1.5-6.6); NEUTROPHILS % (AUTO) 53.6 %; PLT - PLATELET COUNT 192 10^3/uL (130-450); RED BLOOD COUNT 4.05 10^6/uL (4.20-5.40); RED CELL DISTRIBUTION WIDTH 12.2 % (12.0-15.0); WHITE BLOOD COUNT 4.3 x10^3/uL (4.8-10.8)
[2021-03-13 11:23] LABS: ALBUMIN 4.1 g/dL (3.2-5.5); ALBUMIN/GLOBULIN RATIO 1.6 (1.0-2.2); BILIRUBIN,TOTAL 0.8 mg/dL (0.2-1.0); CALCIUM 8.8 mg/dL (8.5-10.3); CREATININE 0.8 mg/dL (0.4-1.0); POTASSIUM 4.2 mmol/L (3.5-5.0); TOTAL PROTEIN 6.6 g/dL (6.7-8.2)
[2021-03-13 11:24] LABS: FOLATE 14.2 ng/mL (5.90 - >24.8)
[2021-03-14 11:46] LABS: HIV AG/AB 4TH GEN NON-REACTIVE (NON-REACTIVE)
== END 2021-03-13 10:06 | disposition home or self-care (01) ==
LOC: LAB 10:05
PROVIDERS: ATTEND Internal Medicine
DX: D64.9 Anemia, unspecified (principal); Z11.4 Encounter for screening for human immunodeficiency virus [HIV]
CPT/HCPCS: 36415; 80053; 82607; 82746; 83540; 84466; 85025; G0475; 87389

== ENCOUNTER 2021-05-08 14:50 | Outpatient (CLI) | payer MEDICARE ==
[2021-05-08 15:40] LABS: THYROID STIMULATING HORMONE 1.98 uIU/mL (0.34-5.60)
[2021-05-08 15:46] LABS: FERRITIN 64.7 ng/mL (11.0-306.8)
== END 2021-05-08 14:51 | disposition home or self-care (01) ==
LOC: DI 14:50
PROVIDERS: ATTEND Student in an Organized Health Care Education/Training Program
DX: R00.2 Palpitations (principal); D50.0 Iron deficiency anemia secondary to blood loss (chronic)
CPT/HCPCS: 36415; 82728; 84443

== ENCOUNTER 2021-05-09 09:11 | Outpatient (CLI) | payer MEDICARE ==
--- NOTE | 2021-05-09 13:31 | Ultrasound Report ---
PROCEDURE: Abdomen Complete INDICATIONS: RUQ PAIN TECHNIQUE: Real-time scanning was performed of the abdominal and retroperitoneal organs, with image documentatio n. COMPARISON: None. FINDINGS: Liver: Liver is mildly enlarged measuring 20.6 cm in length. The parenchyma is diffusely hyperechoic . No discrete nodules or masses. Gallbladder: Gallbladder is normal without stones, sludge, wall thickening, or pericholecystic fluid. Biliary ducts: Intrahepatic bile ducts are non-dilated. Extrahepatic bile duct caliber measures 6.1 mm. Normal is 6-7 mm or less in diameter, or 10 mm or less post-cholecystectomy. Pancreas: Visualized portions of the pancreas are sonographically normal. Spleen: Spleen is normal in size and homogeneous in echotexture. Kidneys: Kidneys are normal in size and echotexture. Right kidney measures 10.1 cm long; left kidne y measures 10.5 cm long. No hydronephrosis or nephrolithiasis. No solid masses. Aorta: Visualized aorta is normal in caliber at less than 3 cm. Iliacs: Proximal common iliac arteries are not seen due to bowel gas. IVC: Intrahepatic inferior vena cava is patent. Miscellaneous: No free abdominal fluid. IMPRESSION: 1. Mild hepatomegaly and hepatic steatosis. This is less likely other intrinsic liver disease and cli nical correlation is recommended. 2. Normal gallbladder. Reviewed by: Cordelia Jiang MD on 05/09/2021 1:30 PM PST Approved by: Cordelia Jiang MD on 05/09/2021 1:30 PM PST Station ID: [id number]
== END 2021-05-09 09:12 | disposition home or self-care (01) ==
LOC: DI 09:11
PROVIDERS: ATTEND Student in an Organized Health Care Education/Training Program
DX: K76.0 Fatty (change of) liver, not elsewhere classified (principal); R10.11 Right upper quadrant pain

== ENCOUNTER 2021-05-28 07:50 | Outpatient (CLI) | payer MEDICARE ==
--- NOTE | 2021-05-28 08:19 | CARDIAC PROCEDURE NOTE ---
Stress Test Report Service Date: 05/28/21 Service Time: 08:00 Ordering Provider: Drew Buckley Indication for Test: Assess for an ischemic contribution to exertional dyspnea and fatigue. Significant Medical History: Alma reports that years ago she was slim and very active, but has developed chronic musculoskeletal conditions, including severe back and joint arthritis as well as fibromyalgia, that have led to a gradual marked decrease in activity along with progressive weight gain. About 4 to 5 months ago she was found to be markedly anemic (does not recall actual numbers) manifested by dizziness and exhaustion with minimal activity. She was begun on supplemental iron with some improvement in her blood counts, but notes in recent weeks a change in her symptom complex, including hoarseness and palpitations, with the latter being more common in the evenings. She reports a single episode of chest pain at rest a couple of weeks ago but has not experienced exertional chest pressure or discomfort. She lives alone in a single-story home and has to pace herself to complete typical housekeeping activities. She reports that if she does her laundry too fast or has too much of a workload at a given time she may experie nce exertional dyspnea and need to rest afterward for a significant period of time. She is able to sleep flat and denies resting dyspnea or recent onset leg edema. She has severe obstructive sleep apnea on CPAP for 8 years. She thinks that download of her values have been consistent with effective therapy. Cardiac Risk Factors: To for hypertension and hyperlipidemia (both treated); negative for known personal or family history of coronary artery disease, diabetes or ever being a cigarette smoker. Type of Stress Test: ETT with Echocardiography Procedure: -Exercise Treadmill Test- After signing informed consent, the patient underwent baseline echo imaging at rest and then performed treadmill exercise using a Modified Benji protocol. The patient exercised for 11 minutes 41 seconds and achieved a peak heart rate of 136 (88 percent predicted maximum heart rate for age), and an estimated workload of 7.1 METS. The test was terminated due to fatigue/shortness of breath. Resting heart rate: 90 Peak heart rate: 136 Normal response to exercise. Resting BP: 170/82 Peak BP: 209/75 Hypertensive at rest with normal response of systolic and diastolic BPs to exercise. Note patient last took her losartan about 18 hours ago. Rhythm during exercise: Sinus rhythm throughout, with rare isolated PACs. Symptoms: No description of chest discomfort or lightheadedness. Both fatigue and dyspnea were about equal contributors to her need to stop walking. EKG at rest showed normal sinus rhythm, right axis deviation, probable left posterior fascicular block, with normal/interpretable ST/T morphologies. EKG at peak stress showed J-point depression with upsloping ST segments, NOT meeting diagnostic EKG criteria for ischemia. In Recovery heart rate decreased rapidly and normally; BP gradually decreased (195/78 at 5:00). Echo imaging was performed at rest and with stress, and will be reported separately. ILuisito MD, was present throughout this treadmill stress echocardiogram and supervised it in all aspects. Summary: 1) Exercise tolerance markedly ABOVE average for age and gender as evidenced by NIHARIKA of -85.3%. 2) Abnormal resting EKG. 3) Adequate level of exercise was achieved on this treadmill stress test. 4) Hypertensive at rest with physiologic BP response to exercise. 5) No ischemic changes by EKG criteria were seen at peak stress. 6) Interpretation of resting echo images reveals normal left ventricular size and systolic function, with mild concentric hypertrophy. There was appropriate hyperdynamic augmentation of all segments with exercise, indicating no evidence of prior infarct or inducible ischemia. See separate report for more details. CONCLUSIONS: 1) Low risk treadmill stress echocardiogram results, with no symptom, EKG or echo evidence of inducible ischemia. 2) In spite of sedentary lifestyle and exertional limitation with household tasks her documented exertional tolerance was reassuringly well above average for age and gender, suggesting that other factors (?primarily musculoskeletal) account for reduced activity level.
== END 2021-05-28 07:51 | disposition home or self-care (01) ==
LOC: DI 07:50
PROVIDERS: ATTEND Student in an Organized Health Care Education/Training Program
DX: R06.02 Shortness of breath (principal); I11.9 Hypertensive heart disease without heart failure; E78.5 Hyperlipidemia, unspecified
CPT/HCPCS: 93016; 93017; 93018; 93350

== ENCOUNTER 2021-07-23 09:21 | Outpatient (CLI) | payer MEDICARE | END 2021-07-23 09:22 | disposition home or self-care (01) | LOC: RT 09:21 | PROVIDERS: ATTEND Student in an Organized Health Care Education/Training Program | DX: R06.02 Shortness of breath (principal) | CPT/HCPCS: 94010; 94729 ==

== ENCOUNTER 2021-07-31 09:11 | Outpatient (CLI) | payer MEDICARE ==
[2021-07-31] MEDS ORDERED: IOPAMIDOL-300 100 ML VIAL ONE (09:24)
--- NOTE | 2021-07-31 10:52 | CT Report ---
PROCEDURE: CHEST WO INDICATIONS: SOB,ABN CHEST XR TECHNIQUE: Noncontrast 1mm axial images were acquired from the pulmonary apices to the posterior costophrenic an gles. Axial 5 mm soft tissue kernel reconstructions were performed as well as 8 mm axial MIP and cor onal and sagittal 5 mm reformations. For radiation dose reduction, the following was used: automate d exposure control, adjustment of mA and/or kV according to patient size. COMPARISON: Reference is made to the chest radiograph dated September 10, 2016. FINDINGS: Thyroid: Homogeneous. Vasculature: Normal size and contour. Heart: No cardiomegaly or pericardial effusion. Mediastinum/oumou: No pathologically enlarged lymph nodes by size criteria. Small hiatal hernia. Lung/pleura: No consolidation, pleural effusion, or pneumothorax. Left lower lobe nodule, measures 5.1 mm; 4-200. Tracheobronchial tree: Patent. Upper abdomen: No acute abnormality. Hepatic steatosis. Bones: No significant abnormality. Multifocal degenerative change. Chest wall: No significant abnormality. IMPRESSION: 1.5.1 mm, noncalcified nodule in the left lower lobe. No routine follow-up per Fleischner criteria. Reviewed by: Nicola Akers MD on 07/31/2021 10:51 AM PDT Approved by: Nicola Akers MD on 07/31/2021 10:51 AM PDT Station ID: [id number]
== END 2021-07-31 09:12 | disposition home or self-care (01) ==
LOC: DI 09:11
PROVIDERS: ATTEND Internal Medicine
DX: R06.02 Shortness of breath (principal); R91.1 Solitary pulmonary nodule

== ENCOUNTER 2021-12-20 11:01 | Outpatient (CLI) | payer MEDICARE ==
[2021-12-20 11:34] LABS: ALBUMIN 4.4 g/dL (3.2-5.5); ALBUMIN/GLOBULIN RATIO 1.7 (1.0-2.2); ALKALINE PHOSPHATASE 65 IU/L (42-121); ALT ALANINE AMINOTRANSFERASE 29 IU/L (10-60); AST ASPARTATE AMINOTRANSFERASE 34 IU/L (10-42); BILIRUBIN,TOTAL 0.5 mg/dL (0.2-1.0); BUN - BLOOD UREA NITROGEN 19 mg/dL (6-20); CALCIUM 9.5 mg/dL (8.5-10.3); CARBON DIOXIDE - CO2 28 mmol/L (21-32); CHLORIDE 103 mmol/L (101-111); CHOL/HDL RATIO 3.7 (<4.4); CHOLESTEROL 205 mg/dL; CREATININE 0.8 mg/dL (0.4-1.0); GFR - MDRD 72 (>89); GLUCOSE 135 mg/dL (70-100); HDL CHOLESTEROL 55 mg/dL; LDL CHOLESTEROL,CALCULATED 102 mg/dL; LDL/HDL RATIO 1.9 (<4.4); POTASSIUM 4.4 mmol/L (3.5-5.0); SODIUM 139 mmol/L (135-145); TRIGLYCERIDES 241 mg/dL; VLDL CHOLESTEROL 48 mg/dL
[2021-12-20 11:43] LABS: THYROID STIMULATING HORMONE 3.61 uIU/mL (0.34-5.60)
[2021-12-20 11:51] LABS: ESTIMATED AVERAGE GLUCOSE 105 mg/dL (70-100); HEMOGLOBIN A1c% 5.3 % (4.27-6.07)
== END 2021-12-20 11:02 | disposition home or self-care (01) ==
LOC: LAB 11:01
PROVIDERS: ATTEND Internal Medicine
DX: I10 Essential (primary) hypertension (principal); E03.9 Hypothyroidism, unspecified; E78.00 Pure hypercholesterolemia, unspecified; G60.9 Hereditary and idiopathic neuropathy, unspecified; Z86.39 Personal history of other endocrine, nutritional and metabolic disease
CPT/HCPCS: 36415; 80053; 80061; 83036; 83721; 84443

== ENCOUNTER 2022-01-01 12:49 | Outpatient (CLI) | payer MEDICARE ==
--- NOTE | 2022-01-02 09:49 | Mammography Report ---
BILATERAL DIGITAL SCREENING MAMMOGRAM 3D/2D: 01/01/2022 CLINICAL: Routine screening. Comparison is made to exams dated: 06/01/2019 mammogram and 02/03/2013 mammogram - [facility]. Both breasts are heterogeneously dense, which may obscure small masses (category c / 51-75% glandula r tissue). No significant masses, calcifications, or other findings are seen in either breast. There has been no significant interval change. IMPRESSION: NEGATIVE There is no mammographic evidence of malignancy. A 1 year screening mammogram is recommended. Based on the Tyrer Cuzick model (a risk assessment model) the patients lifetime risk is 8.0% and her 10 year risk is 4.0%. According to the ACR, ACS, and NCCN guidelines, an annual breast MRI exam eddy g with mammogram is recommended if the patients lifetime risk is 20% or greater. This exam was interpreted at Station ID: [id number]. NOTE: For mammograms, a report in lay terms will be sent to the patient. Approximately 15% of breast malignancies will not be visualized mammographically. In the management of a palpable breast mass, a negative mammogram must not discourage biopsy of a clinically suspicious lesion. Electronically Signed By: Shai Hess M.D. [email or web address]:01/02/2022 07:26:44 ACR BI-RADS Category 1: Negative 3341F PARENCHYMAL PATTERN: (D) - The breast(s) demonstrate(s) heterogeneously dense fibroglandular parshannony ma. BI-RADS CATEGORY: (1) - 1 RECOMMENDATION: (ANNUAL) - Recommend routine annual screening mammography. [id number] 1 year screening LATERALITY: (B)
== END 2022-01-01 12:50 | disposition home or self-care (01) ==
LOC: DI 12:49
PROVIDERS: ATTEND Internal Medicine
DX: Z12.31 Encounter for screening mammogram for malignant neoplasm of breast (principal)

== ENCOUNTER 2023-01-02 12:08 | Outpatient (CLI) | payer MEDICARE ==
[2023-01-02 12:51] LABS: ALBUMIN 4.5 g/dL (3.2-5.5); ALBUMIN/GLOBULIN RATIO 2.3 (1.0-2.2); ALKALINE PHOSPHATASE 78 IU/L (42-121); ALT ALANINE AMINOTRANSFERASE 28 IU/L (10-60); AST ASPARTATE AMINOTRANSFERASE 28 IU/L (10-42); BILIRUBIN,TOTAL 0.5 mg/dL (0.2-1.0); BUN - BLOOD UREA NITROGEN 17 mg/dL (6-20); CALCIUM 9.3 mg/dL (8.5-10.3); CARBON DIOXIDE - CO2 30 mmol/L (21-32); CHLORIDE 103 mmol/L (101-111); CHOL/HDL RATIO 3.3 (<4.4); CHOLESTEROL 159 mg/dL; CREATININE 0.8 mg/dL (0.6-1.3); GFR - MDRD 72 (>89); GLUCOSE 105 mg/dL (74-104); HDL CHOLESTEROL 48 mg/dL; LDL CHOLESTEROL,CALCULATED 67 mg/dL; LDL/HDL RATIO 1.4 (<4.4); POTASSIUM 4.4 mmol/L (3.5-4.5); SODIUM 139 mmol/L (135-145); TOTAL PROTEIN 6.5 g/dL (6.4-8.9); TRIGLYCERIDES 218 mg/dL (48-352); VLDL CHOLESTEROL 44 mg/dL
--- NOTE | 2023-01-02 13:38 | XRAY Report ---
PROCEDURE: Elbow 3 View LT INDICATIONS: LEFT ELBOW PAIN TECHNIQUE: 3 views of the elbow were acquired. COMPARISON: None. FINDINGS: Bones: No fractures or dislocations. No suspicious bony lesions. Soft tissues: No effusion. No suspicious soft tissue calcifications or masses. IMPRESSION: No acute bony abnormality. Reviewed by: Jarrod Priest MD on 01/02/2023 1:37 PM PDT Approved by: Jarrod Priest MD on 01/02/2023 1:37 PM PDT Station ID: [id number]
[2023-01-02 14:49] LABS: THYROID STIMULATING HORMONE 4.11 uIU/mL (0.34-5.60)
== END 2023-01-02 12:09 | disposition home or self-care (01) ==
LOC: DI 12:08
PROVIDERS: ATTEND Internal Medicine
DX: M25.522 Pain in left elbow (principal); E78.5 Hyperlipidemia, unspecified; I10 Essential (primary) hypertension
CPT/HCPCS: 36415; 80053; 80061; 83721; 84443

== ENCOUNTER 2023-03-26 14:15 | Outpatient (CLI) | payer MEDICARE ==
--- NOTE | 2023-03-26 15:23 | XRAY Report ---
PROCEDURE: Hip w/Pelvis 2-3V LT INDICATIONS: LEFT HIP PAIN TECHNIQUE: 2 views left hip were obtained. COMPARISON: X-ray sacroiliac bones to 04/27/2020 FINDINGS: No visualized fracture or dislocation. No suspicious osseous lesions. Soft tissues are unremarkable. Mild bilateral degenerative hip joint space narrowing. No erosions IMPRESSION: Mild bilateral arthritic change within the hips. Reviewed by: Geni Snyder MD on 03/26/2023 3:21 PM PST Approved by: Geni Snyder MD on 03/26/2023 3:21 PM PST Station ID: [id number]
== END 2023-03-26 14:16 | disposition home or self-care (01) ==
LOC: DI 14:15
PROVIDERS: ATTEND Internal Medicine
DX: M16.0 Bilateral primary osteoarthritis of hip (principal)

== ENCOUNTER 2023-06-29 13:43 | Outpatient (CLI) | payer MEDICARE ==
--- NOTE | 2023-06-30 09:45 | Mammography Report ---
BILATERAL DIGITAL SCREENING MAMMOGRAM 3D/2D: 06/29/2023 CLINICAL: Routine screening. Comparison is made to exams dated: 01/01/2022 mammogram and 06/01/2019 mammogram - [facility]. Both breasts are heterogeneously dense, which may obscure small masses (category c / 51-75% glandular tissue). No significant masses, calcifications, or other findings are seen in either breast. There has been no significant interval change. IMPRESSION: NEGATIVE There is no mammographic evidence of malignancy. A 1 year screening mammogram is recommended. Based on the Tyrer Cuzick model (a risk assessment model) the patient's lifetime risk is 7.2% and her 10 year risk is 4.0%. According to the ACR, ACS, and NCCN guidelines, an annual breast MRI exam eddy g with mammogram is recommended if the patient's lifetime risk is 20% or greater. This exam was interpreted at Station ID: [id number]. NOTE: For mammograms, a report in lay terms will be sent to the patient. Approximately 15% of breast malignancies will not be visualized mammographically. In the management of a palpable breast mass, a negative mammogram must not discourage biopsy of a clinically suspicious lesion. Electronically Signed By: Keren [email or web address]:06/29/2023 17:24:46 letter sent: No_Letter ACR BI-RADS Category 1: Negative 3341F PARENCHYMAL PATTERN: (D) - The breast(s) demonstrate(s) heterogeneously dense fibroglandular portia becker. BI-RADS CATEGORY: (1) - 1 RECOMMENDATION: (ANNUAL) - Recommend routine annual screening mammography. [id number] 1 year screening LATERALITY: (B)
== END 2023-06-29 13:44 | disposition home or self-care (01) ==
LOC: DI 13:43
PROVIDERS: ATTEND Internal Medicine
DX: Z12.31 Encounter for screening mammogram for malignant neoplasm of breast (principal); R92.333 Mammographic heterogeneous density, bilateral breasts

== ENCOUNTER 2023-06-29 13:46 | Outpatient (CLI) | payer MEDICARE ==
--- NOTE | 2023-06-29 19:59 | XRAY Report ---
PROCEDURE: Hips w/Pelvis 3-4V BL INDICATIONS: BILATERAL HIP PAIN TECHNIQUE: AP view of the pelvis and lateral views of the right and left hips. COMPARISON: Hip radiographs 03/26/2023. FINDINGS: No acute osseous fracture or dislocation. Minimal degenerative changes are seen in the hips bilateral ly. Degenerative changes are seen in the included spine. Mild degenerative changes of the pubic symph ysis. No suspicious osseous lesion. No suspicious soft tissue calcifications. Pelvic soft tissues are unremarkable. IMPRESSION: Minimal bilateral hip osteoarthrosis. Degenerative changes are seen in the included spine. Reviewed by: Jose Rafael Abdul MD on 06/29/2023 7:57 PM PDT Approved by: Jose Rafael Abdul MD on 06/29/2023 7:57 PM PDT Station ID: [id number]
== END 2023-06-29 13:47 | disposition home or self-care (01) ==
LOC: DI 13:46
PROVIDERS: ATTEND Internal Medicine
DX: M16.0 Bilateral primary osteoarthritis of hip (principal)

== ENCOUNTER 2023-07-13 03:19 | Outpatient (CLI) | payer MEDICARE | END 2023-07-13 23:59 | disposition EMS.NT | LOC: EMS 03:19 | DX: R20.0 Anesthesia of skin (principal); R20.2 Paresthesia of skin ==

== ENCOUNTER 2023-09-16 08:00 | Outpatient (CLI) | payer MEDICARE ==
[2023-09-16 22:23] LABS: BILIRUBIN,URINE NEGATIVE (NEGATIVE); GLUCOSE, URINE (UA) NEGATIVE (NEGATIVE); KETONES,URINE (UA) TRACE mg/dL (NEGATIVE); LEUKOCYTE ESTERASE, URINE SMALL (NEGATIVE); NITRITE,URINE NEGATIVE (NEGATIVE); OCCULT BLOOD,URINE NEGATIVE (NEGATIVE); PH,URINE 5.5 PH (5.0-7.5); PROTEIN,URINE NEGATIVE (NEGATIVE); UROBILINOGEN,URINE 1 (NORMAL) E.U./dL (NORMAL)
[2023-09-16 22:33] LABS: AMORPHOUS SEDIMENT,UR Marked /LPF; BACTERIA,URINE Rare /HPF (None Seen); CLARITY,URINE TURBID (CLEAR); RBC,URINE None Seen /HPF (0-5); SQUAMOUS EPITHELIAL CELL,UR FEW Squamous (<= Few); WBC,URINE 0-3 /HPF (0-5)
== END 2023-09-16 23:59 | disposition home or self-care (01) ==
LOC: LAB.S 08:00
PROVIDERS: ATTEND Emergency Medicine
DX: N39.0 Urinary tract infection, site not specified (principal)
CPT/HCPCS: 81001; 87086

== ENCOUNTER 2023-10-05 13:37 | Outpatient (CLI) | payer MEDICARE ==
--- NOTE | 2023-10-05 15:54 | DEXA Report ---
PROCEDURE: Dexa Spine and/or Hip INDICATIONS: POST MENOPAUSAL TECHNIQUE: Dual energy x-ray absorptiometry (DXA) was performed on a [employer]. Regions measur ed are the AP Spine, femoral neck, and if needed forearm. COMPARISON: 04/27/2020 FINDINGS: Lumbar Spine: Bone Mineral Density: 1.047 g/cm/cm,T score: -1.1. There has been no statistically significant constantino e in bone mineral density since the prior study. Left Femoral Neck: Bone Mineral Density: 0.978 g/cm/cm, T score: -0.4. Left Hip: Bone Mineral Density: 1.1-2 g/cm/cm,T score: 0.9. Since the most recent prior study, there has been a statistically significant increase in bone mineral density by 7.6 percent. (T score greater or equal to -1.0: NORMAL) (T score from -1.1 to -2.4: OSTEOPENIA) (T score less than or equal to -2.5 to: OSTEOPOROSIS) Impression: By WHO criteria, this patient has low bone density (osteopenia). No statistical interval change in bone mineral density of the lumbar spine. Interval statistical incr ease in bone mineral density of the hip. Patients with diagnosis of osteoporosis or osteopenia should have regular bone mineral density assess ment. For those eligible for Medicare, routine testing is allowed once every 2 years. Testing frequ ency can be increased for patients who have rapidly progressing disease or for those who are receivin g medical therapy to restore bone mass. Reviewed by: Hosea Stovall MD on 10/05/2023 3:53 PM PDT Approved by: Hosea Stovall MD on 10/05/2023 3:53 PM PDT Station ID: [id number]
== END 2023-10-05 13:38 | disposition home or self-care (01) ==
LOC: DI 13:37
PROVIDERS: ATTEND Internal Medicine
DX: M85.88 Other specified disorders of bone density and structure, other site (principal); Z78.0 Asymptomatic menopausal state